=== PATIENT | female | born 1960 | race Caucasian/White ===

== ENCOUNTER → 2019-02-20 09:39 | Outpatient (CLI) | payer OTHER ==
[2019-02-20 11:02] LABS: ALBUMIN 3.6 g/dL (3.4-5.0); BILIRUBIN - DIRECT 0.06 mg/dL (0.00-0.30); BILIRUBIN - INDIRECT 0.36 mg/dL (0.00-1.00); BILIRUBIN - TOTAL 0.42 mg/dL (0.2-1.3); PROTEIN - SERUM 7.2 g/dL (6.4-8.2)
== END | disposition home or self-care (01) ==
LOC: D.US 09:39
PROVIDERS: ATTEND Internal Medicine Gastroenterology
DX: K76.9 Liver disease, unspecified (principal)

== ENCOUNTER → 2019-03-06 08:53 | Outpatient (CLI) | payer OTHER | END | disposition home or self-care (01) | LOC: D.LAB 08:53 → D.MRI 10:00 | PROVIDERS: ATTEND Internal Medicine Gastroenterology | DX: K76.89 Other specified diseases of liver (principal) ==

== ENCOUNTER → 2019-05-23 08:20 | Outpatient (CLI) | payer OTHER ==
[2019-05-23 09:46] LABS: ALBUMIN 3.5 g/dL (3.4-5.0); BILIRUBIN - DIRECT 0.1 mg/dL (0.00-0.30); BILIRUBIN - INDIRECT 0.32 mg/dL (0.00-1.00); BILIRUBIN - TOTAL 0.42 mg/dL (0.2-1.3); PROTEIN - SERUM 7.6 g/dL (6.4-8.2)
== END | disposition home or self-care (01) ==
LOC: D.US 08:20
PROVIDERS: ATTEND Internal Medicine Gastroenterology
DX: D18.09 Hemangioma of other sites (principal)